=== PATIENT | female | born 1955 | race Hispanic/Latino ===

== ENCOUNTER → 2021-03-26 | Day surgery (SDC) | payer MEDICARE ==
[2021-03-21 09:56] LABS: BASOPHILS # (AUTO) 0.1 (0.0-0.1); BASOPHILS % 0.5 % (0.0-1.0); EOSINOPHILS # (AUTO) 0.2 (0.0-0.4); EOSINOPHILS % 2.6 % (0.0-6.0); HEMATOCRIT 32.7 % (34.2-44.1); LYMPHOCYTES # (AUTO) 1.7 (1.0-3.2); LYMPHOCYTES % 18.3 % (18.0-39.1); MEAN CORPUSCULAR HEMOGLOBIN 26.6 pg (28-32); MEAN CORPUSCULAR HGB CONC 30.6 g/dL (31-35); MONOCYTES # (AUTO) 0.7 (0.2-0.8); MONOCYTES % 7.2 % (4.4-11.3); NEUTROPHILS # (AUTO) 6.6 (2.1-6.9); PLATELET COUNT 267 x10e3/uL (140-360); RED BLOOD COUNT 3.76 x10e6/uL (3.6-5.1); RED CELL DISTRIBUTION WIDTH 13.7 % (11.7-14.4)
[2021-03-21 10:31] LABS: ALBUMIN 3.8 g/dL (3.5-5.0); ALBUMIN/GLOBULIN RATIO 1.2 (0.8-2.0); ANION GAP 15.9 mmol/L (8-16); CREATININE, SERUM 1.94 mg/dL (0.57-1.11); POTASSIUM 4.9 mmol/L (3.5-5.1)
[2021-03-26] VITALS (7 sets, daily range): BP systolic 105–153; BP diastolic 57–67
[~2021-03-26] VITALS: Ht 152.4 cm; Wt 103.0 kg
[~2021-03-26] MED LIST: ALPRAZOLAM 0.5 MG TAB ONE; ATORVASTATIN CA20 MG PO; CARVEDILOL3.125 MG PO; DIPHENHYDRAMINE HCL 25 MG CAP ONE; DIPHENHYDRAMINE HCL INJ 50 MG/ML VIAL ONE; FAMOTIDINE 20 MG/2 ML VIAL IV ONE; FENTANYL CITRATE/PF 100MCG/2 ML INJ ONE; FLECAINIDE ACE100 MG PO; FUROSEMIDE40 MG PO; HEPARIN SOD/SOD CHLORIDE 2,000 ML ONE; HYDRALAZINE HCL25 MG PO; IOPAMIDOL 370 MG/ML 200 ML INFUS..BTL INJ ONE; LIDOCAINE HCL 2% LOCAL 20 ML VIAL ONE; METHYLPREDNISOLONE SOD SUCC 125 MG/2ML VIAL ONE; MIDAZOLAM HCL 2 MG/2 ML VIAL ONE; NOVOLIN 70100 UNIT/3 SC; SODIUM CHLORIDE 0.9% 1000ML 1,000 ML ONE; SPIRONOLACTONE25 MG PO; TRIAMCINOLONE A15 G2 TOP; VITAMIN C500 MG PO; WARFARIN SODIUM3 MG PO
== END | disposition home or self-care (01) ==
LOC: CATH LAB 14:35
PROVIDERS: ATTEND Internal Medicine Interventional Cardiology
DX: I25.118 Atherosclerotic heart disease of native coronary artery with other forms of angina pectoris (principal); R94.39 Abnormal result of other cardiovascular function study; I10 Essential (primary) hypertension; I73.9 Peripheral vascular disease, unspecified; R06.09 Other forms of dyspnea; E11.9 Type 2 diabetes mellitus without complications; Z01.812 Encounter for preprocedural laboratory examination; Z20.822 Contact with and (suspected) exposure to COVID-19; Z79.4 Long term (current) use of insulin; Z79.01 Long term (current) use of anticoagulants; Z79.899 Other long term (current) drug therapy; Z68.41 Body mass index [BMI] 40.0-44.9, adult; Z86.73 Personal history of transient ischemic attack (TIA), and cerebral infarction without residual deficits
CPT/HCPCS: 36415 ×2; 76937; 80053; 82948; 83880; 85025; 93454; C1769; C1887; J1200; J2001; J2250; J2930; J3010; J7030; Q9967; U0002; 99152

== ENCOUNTER 2021-06-05 20:21 | Observation (INO) | payer MEDICARE ==
[~2021-06-05] VITALS: Ht 152.4 cm; Wt 99.8 kg
[~2021-06-05 20:21] MED LIST changes: -ALPRAZOLAM 0.5 MG TAB ONE; -DIPHENHYDRAMINE HCL 25 MG CAP ONE; -DIPHENHYDRAMINE HCL INJ 50 MG/ML VIAL ONE; -FAMOTIDINE 20 MG/2 ML VIAL IV ONE; -FENTANYL CITRATE/PF 100MCG/2 ML INJ ONE; -HEPARIN SOD/SOD CHLORIDE 2,000 ML ONE; -IOPAMIDOL 370 MG/ML 200 ML INFUS..BTL INJ ONE; -LIDOCAINE HCL 2% LOCAL 20 ML VIAL ONE; -METHYLPREDNISOLONE SOD SUCC 125 MG/2ML VIAL ONE; -MIDAZOLAM HCL 2 MG/2 ML VIAL ONE; -SODIUM CHLORIDE 0.9% 1000ML 1,000 ML ONE
[2021-06-05 21:05] LABS: BASOPHILS # (AUTO) 0.1 (0.0-0.1); BASOPHILS % 0.6 % (0.0-1.0); EOSINOPHILS # (AUTO) 0.4 (0.0-0.4); EOSINOPHILS % 3.5 % (0.0-6.0); HEMATOCRIT 30.1 % (34.2-44.1); HEMOGLOBIN 8.9 g/dL (12.0-16.0); LYMPHOCYTES # (AUTO) 1.7 (1.0-3.2); LYMPHOCYTES % 16.9 % (18.0-39.1); MEAN CORPUSCULAR HEMOGLOBIN 26.7 pg (28-32); MEAN CORPUSCULAR HGB CONC 29.6 g/dL (31-35); MEAN CORPUSCULAR VOLUME 90.4 fL (81-99); MONOCYTES # (AUTO) 0.7 (0.2-0.8); MONOCYTES % 6.9 % (4.4-11.3); NEUTROPHILS # (AUTO) 7.2 (2.1-6.9); NEUTROPHILS % 71.8 % (38.7-80.0); PLATELET COUNT 270 x10e3/uL (140-360); RED BLOOD COUNT 3.33 x10e6/uL (3.6-5.1); RED CELL DISTRIBUTION WIDTH 14.6 % (11.7-14.4)
[2021-06-05 21:23] LABS: ALBUMIN 3.6 g/dL (3.5-5.0); ALBUMIN/GLOBULIN RATIO 1.1 (0.8-2.0); ANION GAP 14.5 mmol/L (8-16); CALCIUM 8.8 mg/dL (8.4-10.2); CREATININE, SERUM 1.89 mg/dL (0.57-1.11); POTASSIUM 5.5 mmol/L (3.5-5.1)
[2021-06-05 21:29] LABS: CREATINE KINASE MB 4.3 ng/mL (0-5.0)
[2021-06-05] MEDS ORDERED: DEXTROSE 50% SYRINGE 50 ML IV STA ×2 (21:45→22:14)
[2021-06-05] MEDS ORDERED: INSULIN REGULAR, HUMAN 100 UNIT/1 ML SQ STA (21:45)
[2021-06-05] MEDS ORDERED: FUROSEMIDE INJ 10 MG/ML 4 ML VIAL IV ONE (21:45)
[2021-06-05] MEDS ORDERED: SODIUM BICARBONATE 8.4% INJ 50 ML SYR IV STA (21:45)
[2021-06-05 22:00] VITALS: BP 154/72
[2021-06-05] MEDS ORDERED: INSULIN REGULAR, HUMAN 100 UNIT/1 ML IV ONE (22:30)
[2021-06-05] MEDS ORDERED: DEXTROSE 50% SYRINGE 50 ML IV ONE ×3 (22:35→23:08)
[2021-06-05] MEDS ORDERED: SODIUM CHLORIDE 0.9% 250ML 250 ML ONE (22:52)
[2021-06-06 04:00] VITALS: BP 151/67
[2021-06-06 05:59] LABS: BASOPHILS # (AUTO) 0.1 (0.0-0.1); BASOPHILS % 0.4 % (0.0-1.0); EOSINOPHILS # (AUTO) 0.2 (0.0-0.4); HEMATOCRIT 27.4 % (34.2-44.1); HEMOGLOBIN 8.3 g/dL (12.0-16.0); LYMPHOCYTES # (AUTO) 1.5 (1.0-3.2); LYMPHOCYTES % 13.6 % (18.0-39.1); MEAN CORPUSCULAR HEMOGLOBIN 26.8 pg (28-32); MEAN CORPUSCULAR HGB CONC 30.3 g/dL (31-35); MEAN CORPUSCULAR VOLUME 88.4 fL (81-99); MONOCYTES # (AUTO) 0.7 (0.2-0.8); NEUTROPHILS # (AUTO) 8.8 (2.1-6.9); NEUTROPHILS % 77.6 % (38.7-80.0); PLATELET COUNT 261 x10e3/uL (140-360); RED CELL DISTRIBUTION WIDTH 14.7 % (11.7-14.4)
[2021-06-06 06:27] LABS: ALBUMIN 3.3 g/dL (3.5-5.0); ALBUMIN/GLOBULIN RATIO 1.1 (0.8-2.0); ANION GAP 13.9 mmol/L (8-16); CALCIUM 8.7 mg/dL (8.4-10.2); CREATININE, SERUM 1.88 mg/dL (0.57-1.11); POTASSIUM 4.9 mmol/L (3.5-5.1)
[2021-06-06 07:04] LABS: CREATINE KINASE MB 3.6 ng/mL (0-5.0)
[2021-06-06 07:45] VITALS: BP 130/55
[2021-06-06 09:02] VITALS: BP 130/55
[2021-06-06] MEDS ORDERED: LEVOFLOXACIN 750MG/D5W 150ML 150 ML IV ONE (10:00)
[2021-06-06 11:04] VITALS: BP 127/64
[2021-06-06 15:16] VITALS: BP 128/57
[2021-06-06] MEDS ORDERED: FUROSEMIDE INJ 10 MG/ML 4 ML VIAL IV ONE (17:45)
== END 2021-06-06 19:45 | disposition home or self-care (01) ==
LOC: ER 20:56 → ERHOLD 21:57 → MERGE 21:57 → MED/SURG3 23:09
PROVIDERS: ADMIT Internal Medicine; ATTEND Internal Medicine
DX: J18.9 Pneumonia, unspecified organism (principal); I12.9 Hypertensive chronic kidney disease with stage 1 through stage 4 chronic kidney disease, or unspecified chronic kidney disease; N18.32 Chronic kidney disease, stage 3b; Z20.822 Contact with and (suspected) exposure to COVID-19
CPT/HCPCS: 36415 ×2; 71045; 80053 ×2; 82550 ×2; 82553 ×2; 82948; 83880; 84484 ×2; 85025 ×2; 85379; 93005; 93306; 94799; 99284; G0378 ×2; J0456; J1817; J1940 ×2; J7050; J7799; U0002

== ENCOUNTER 2021-06-20 12:00 | Inpatient (IN) | payer MEDICARE ==
[~2021-06-20] VITALS: Ht 152.4 cm; Wt 102.1 kg
[2021-06-20] MEDS ORDERED: DIGOXIN INJ 0.25 MG/ML 2 ML AMP IV STA (12:12)
[2021-06-20] MEDS ORDERED: DILTIAZEM HCL 5 MG/ML 5 ML VIAL IV STA (12:12)
[2021-06-20 12:26] LABS: BASOPHILS % 0.4 % (0.0-1.0); EOSINOPHILS # (AUTO) 0.2 (0.0-0.4); EOSINOPHILS % 2.6 % (0.0-6.0); HEMATOCRIT 31.1 % (34.2-44.1); HEMOGLOBIN 9.3 g/dL (12.0-16.0); LYMPHOCYTES # (AUTO) 1.4 (1.0-3.2); LYMPHOCYTES % 15.8 % (18.0-39.1); MEAN CORPUSCULAR HEMOGLOBIN 26.4 pg (28-32); MEAN CORPUSCULAR HGB CONC 29.9 g/dL (31-35); MEAN CORPUSCULAR VOLUME 88.4 fL (81-99); MONOCYTES # (AUTO) 0.6 (0.2-0.8); MONOCYTES % 6.9 % (4.4-11.3); NEUTROPHILS # (AUTO) 6.6 (2.1-6.9); PLATELET COUNT 238 x10e3/uL (140-360); RED BLOOD COUNT 3.52 x10e6/uL (3.6-5.1); RED CELL DISTRIBUTION WIDTH 13.8 % (11.7-14.4)
[2021-06-20] MEDS ORDERED: ONDANSETRON HCL INJ 2MG/ML 2ML 2 MG/ML VIAL IV PRN (12:30)
[2021-06-20] MEDS ORDERED: Morphine 4mg Syringe 4 MG/ML INJ IV PRN (12:30)
[2021-06-20] MEDS ORDERED: ASPIRIN 81 MG CHEW TAB PO ONE (12:30)
[2021-06-20 12:49] LABS: ALBUMIN 3.4 g/dL (3.5-5.0); ALBUMIN/GLOBULIN RATIO 1.1 (0.8-2.0); ANION GAP 15.9 mmol/L (8-16); CREATININE, SERUM 2.04 mg/dL (0.57-1.11); POTASSIUM 4.9 mmol/L (3.5-5.1)
[2021-06-20 14:30] VITALS: BP 104/66
[2021-06-20] MEDS ORDERED: COREG6.25 MG PO (18:20)
[2021-06-20] MEDS ORDERED: LIPITOR20 MG PO (18:20)
[2021-06-20] MEDS ORDERED: SPIRONOLACTONE25 MG PO (18:20)
[2021-06-20] MEDS ORDERED: HYDRALAZINE HCL25 MG PO (18:20)
[2021-06-20] MEDS ORDERED: FUROSEMIDE40 MG PO (18:20)
[2021-06-20] MEDS ORDERED: WARFARIN SODIUM5 MG PO (18:20)
[2021-06-20] MEDS ORDERED: FLECAINIDE ACE100 MG PO (18:20)
[2021-06-20] MEDS ORDERED: RAYALDEE30 MCG (18:23)
[2021-06-20 19:18] VITALS: BP 120/65
[2021-06-20 19:55] VITALS: BP 103/88
[2021-06-20 20:44] LABS: CREATINE KINASE MB 1.8 ng/mL (0-5.0)
[2021-06-20 20:53] VITALS: BP 103/88
[2021-06-20] MEDS ORDERED: ATORVASTATIN 20 MG TAB PO SCH (21:00)
[2021-06-20] MEDS ORDERED: ACETAMINOPHEN 325 MG TAB PO PRN (21:00)
[2021-06-21 00:42] VITALS: BP 143/67
[2021-06-21 00:59] LABS: INR 3.47; PROTHROMBIN TIME 36.7 seconds (11.9-14.5)
[2021-06-21 05:06] LABS: BASOPHILS # (AUTO) 0.1 (0.0-0.1); BASOPHILS % 0.7 % (0.0-1.0); EOSINOPHILS # (AUTO) 0.2 (0.0-0.4); HEMATOCRIT 27.6 % (34.2-44.1); HEMOGLOBIN 8.3 g/dL (12.0-16.0); LYMPHOCYTES # (AUTO) 1.9 (1.0-3.2); LYMPHOCYTES % 25.5 % (18.0-39.1); MEAN CORPUSCULAR HEMOGLOBIN 26.5 pg (28-32); MEAN CORPUSCULAR HGB CONC 30.1 g/dL (31-35); MEAN CORPUSCULAR VOLUME 88.2 fL (81-99); MONOCYTES # (AUTO) 0.7 (0.2-0.8); MONOCYTES % 9.4 % (4.4-11.3); NEUTROPHILS # (AUTO) 4.5 (2.1-6.9); NEUTROPHILS % 61.1 % (38.7-80.0); PLATELET COUNT 209 x10e3/uL (140-360); RED BLOOD COUNT 3.13 x10e6/uL (3.6-5.1)
[2021-06-21 05:26] LABS: ALBUMIN 3.1 g/dL (3.5-5.0); ALBUMIN/GLOBULIN RATIO 1.1 (0.8-2.0); ANION GAP 13.3 mmol/L (8-16); CREATININE, SERUM 2.06 mg/dL (0.57-1.11); POTASSIUM 5.3 mmol/L (3.5-5.1)
[2021-06-21 06:01] LABS: CREATINE KINASE MB 2.5 ng/mL (0-5.0)
[2021-06-21 06:22] VITALS: BP 133/66
[2021-06-21] MEDS ORDERED: TOPROL XL50 MG PO (08:02)
[2021-06-21 08:12] VITALS: BP 129/53
[2021-06-21] MEDS ORDERED: FLECAINIDE ACETATE 100 MG TAB PO SCH (09:00)
[2021-06-21] MEDS ORDERED: CARVEDILOL 3.125 MG TAB PO SCH (09:00)
[2021-06-21] MEDS ORDERED: ONDANSETRON HCL 4 MG ORAL DISINTEGRATING TAB PO PRN (09:00)
[2021-06-21] MEDS ORDERED: INSULIN ASPART 70/30 100 UNITS/ML VIAL SC SCH (09:00)
[2021-06-21] MEDS ORDERED: METOPROLOL SUCCINATE 50 MG TAB XL PO SCH (09:00)
== END 2021-06-21 09:31 | disposition home or self-care (01) | DRG 292 ==
LOC: ER 12:04 → ERHOLD 12:19 → MED/SURG2 13:30
PROVIDERS: ADMIT Internal Medicine; ATTEND Internal Medicine
DX: I13.0 Hypertensive heart and chronic kidney disease with heart failure and stage 1 through stage 4 chronic kidney disease, or unspecified chronic kidney disease (principal); N18.4 Chronic kidney disease, stage 4 (severe); I50.22 Chronic systolic (congestive) heart failure; N17.9 Acute kidney failure, unspecified; E78.5 Hyperlipidemia, unspecified; Z20.822 Contact with and (suspected) exposure to COVID-19; E11.22 Type 2 diabetes mellitus with diabetic chronic kidney disease; Z79.899 Other long term (current) drug therapy; Z95.0 Presence of cardiac pacemaker
CPT/HCPCS: 36415; 71045; 80053; 80061; 82550; 82553; 82948; 83036; 83880; 84484; 85025; 85379; 85610; 93005; 94799; 99284; J1160; J1815; J2405; U0002

== ENCOUNTER 2022-09-18 19:23 | Inpatient (IN) | payer MEDICARE ==
[~2022-09-18] VITALS: Ht 152.4 cm; Wt 111.1 kg
[~2022-09-18 19:23] MED LIST changes: +COREG6.25 MG PO; +LIPITOR20 MG PO; +RAYALDEE30 MCG; +TOPROL XL50 MG PO; +WARFARIN SODIUM5 MG PO
[2022-09-18] MEDS ORDERED: METOPROLOL TARTRATE INJ 1 MG/ML VIAL IV STA (20:00)
[2022-09-18] MEDS ORDERED: DILTIAZEM HCL 5 MG/ML 5 ML VIAL IV STA (20:00)
[2022-09-18] MEDS ORDERED: ACETAMINOPHEN 325 MG TAB PO STA (20:00)
[2022-09-18] MEDS ORDERED: DIGOXIN INJ 0.25 MG/ML 2 ML AMP IV STA (20:00)
[2022-09-18] MEDS ORDERED: LEVOFLOXACIN 750MG/D5W 150ML 150 ML IV SCH (20:15)
[2022-09-18 20:27] LABS: BASOPHILS % 0.2 % (0.0-1.0); EOSINOPHILS % 0.1 % (0.0-6.0); HEMATOCRIT 38.7 % (34.2-44.1); HEMOGLOBIN 12.1 g/dL (12.0-16.0); LYMPHOCYTES # (AUTO) 0.2 (1.0-3.2); LYMPHOCYTES % 1.7 % (18.0-39.1); MEAN CORPUSCULAR HEMOGLOBIN 26.1 pg (28-32); MEAN CORPUSCULAR HGB CONC 31.3 g/dL (31-35); MEAN CORPUSCULAR VOLUME 83.4 fL (81-99); MONOCYTES # (AUTO) 0.5 (0.2-0.8); MONOCYTES % 3.8 % (4.4-11.3); NEUTROPHILS # (AUTO) 12.2 (2.1-6.9); NEUTROPHILS % 93.7 % (38.7-80.0); PLATELET COUNT 206 x10e3/uL (140-360); RED BLOOD COUNT 4.64 x10e6/uL (3.6-5.1); RED CELL DISTRIBUTION WIDTH 14.5 % (11.7-14.4)
[2022-09-18 20:44] LABS: ALBUMIN 3.5 g/dL (3.5-5.0); ALBUMIN/GLOBULIN RATIO 1.2 (0.8-2.0); ANION GAP 18.1 mmol/L (8-16); CALCIUM 8.9 mg/dL (8.4-10.2); CREATININE, SERUM 2.19 mg/dL (0.57-1.11); POTASSIUM 4.1 mmol/L (3.5-5.1)
[2022-09-18 22:30] VITALS: PULSE 106; RESP 20; O2SAT 98
[2022-09-19] VITALS (11 sets, daily range): BP systolic 103–136; BP diastolic 46–91; PULSE 59–122; RESP 18–23; TEMP 97.9–99.7; O2SAT 92–100
[2022-09-19] MEDS ORDERED: SODIUM CHLORIDE FLUSH 10 ML SYR INJ PRN
[2022-09-19] MEDS ORDERED: ONDANSETRON HCL INJ 2MG/ML 2ML 2 MG/ML VIAL IV PRN
[2022-09-19] MEDS ORDERED: Morphine 4mg INJECTION 4 MG/ML INJ IV PRN
[2022-09-19] MEDS ORDERED: ACETAMINOPHEN/CODEINE 300MG - 30MG TAB PO STA (01:26)
[2022-09-19] MEDS ORDERED: VALSARTAN160 MG PO (03:48)
[2022-09-19] MEDS ORDERED: CARVEDILOL6.25 MG PO (03:48)
[2022-09-19] MEDS ORDERED: ELIQUIS2.5 MG PO (03:48)
[2022-09-19] MEDS ORDERED: FARXIGA5 MG PO (03:48)
[2022-09-19 07:07] LABS: BASOPHILS # (AUTO) 0.1 (0.0-0.1); BASOPHILS % 0.3 % (0.0-1.0); HEMOGLOBIN 11.5 g/dL (12.0-16.0); LYMPHOCYTES # (AUTO) 0.3 (1.0-3.2); LYMPHOCYTES % 1.7 % (18.0-39.1); MEAN CORPUSCULAR HEMOGLOBIN 26.1 pg (28-32); MEAN CORPUSCULAR HGB CONC 31.1 g/dL (31-35); MEAN CORPUSCULAR VOLUME 83.9 fL (81-99); MONOCYTES # (AUTO) 0.6 (0.2-0.8); NEUTROPHILS % 94.4 % (38.7-80.0); PLATELET COUNT 189 x10e3/uL (140-360); RED BLOOD COUNT 4.41 x10e6/uL (3.6-5.1); RED CELL DISTRIBUTION WIDTH 14.6 % (11.7-14.4)
[2022-09-19 07:30] LABS: ALBUMIN 3.1 g/dL (3.5-5.0); ANION GAP 16.3 mmol/L (8-16); CALCIUM 8.7 mg/dL (8.4-10.2); CREATININE, SERUM 2.32 mg/dL (0.57-1.11); POTASSIUM 4.3 mmol/L (3.5-5.1)
[2022-09-19] MEDS ORDERED: LACTATED RINGER'S 1,000 ML INJ SCH (08:00)
[2022-09-19] MEDS ORDERED: LACTATED RINGER'S 250 ML IV ONE (08:00)
[2022-09-19 08:47] LABS: CHOL/HDL RATIO 2.3 (3.0-3.6)
[2022-09-19] MEDS: SODIUM CHLORIDE 0.9% 1000ML 1,000 ML IV SCH ×2 (09:05→21:48)
[2022-09-19] MEDS: METOPROLOL TARTRATE 25 MG TAB PO SCH ×2 (09:06→21:40)
[2022-09-19] MEDS: FUROSEMIDE INJ 10 MG/ML 4 ML VIAL IV SCH ×2 (09:07→17:23)
[2022-09-19 09:08] LABS: FREE THYROXINE INDEX 2.7965 (1.4-3.8); THYROID STIMULATING HORMONE 0.369 uIU/mL (0.350-4.940)
[2022-09-19] MEDS: APIXABAN 5 MG TABLET PO SCH ×2 (09:12→17:23)
[2022-09-19 15:53] LABS: CREATINE KINASE MB 2.8 ng/mL (0-5.0)
[2022-09-19] MEDS ORDERED: DEXTROSE 50% SYRINGE 50 ML IV PRN (16:00)
[2022-09-19] MEDS: INSULIN LISPRO 100 UNIT/1 ML 3ML VIAL SQ SCH ×2 (16:30→21:00)
[2022-09-19 21:24] LABS: CLARITY,URINE SL CLOUDY (CLEAR); COLOR,URINE YELLOW (YELLOW); KETONES,URINE NEGATIVE (NEGATIVE); LEUKOCYTE ESTERASE ,URINE NEGATIVE (NEGATIVE); NITRITE,URINE NEGATIVE (NEGATIVE); PROTEIN,URINE DIPSTICK NEGATIVE (NEGATIVE); URINE UROBILINOGEN 1 mg/dL (0.2 - 1)
[2022-09-19 21:31] LABS: BACTERIA,URINE MODERATE /HPF; EPITHELIAL CELLS,URINE MANY /LPF; RBC,URINE 0-5 /HPF (0-5)
[2022-09-20] VITALS (7 sets, daily range): BP systolic 100–140; BP diastolic 60–94; PULSE 59–116; RESP 18–25; TEMP 97.6–99.3; O2SAT 95–100
[2022-09-20] MEDS: SODIUM CHLORIDE 0.9% 1000ML 1,000 ML IV SCH (05:02)
[2022-09-20 06:50] LABS: BASOPHILS % 0.3 % (0.0-1.0); EOSINOPHILS % 0.1 % (0.0-6.0); HEMATOCRIT 37.1 % (34.2-44.1); HEMOGLOBIN 11.4 g/dL (12.0-16.0); LYMPHOCYTES # (AUTO) 0.6 (1.0-3.2); LYMPHOCYTES % 5.2 % (18.0-39.1); MEAN CORPUSCULAR HGB CONC 30.7 g/dL (31-35); MEAN CORPUSCULAR VOLUME 84.5 fL (81-99); MONOCYTES # (AUTO) 0.6 (0.2-0.8); MONOCYTES % 5.5 % (4.4-11.3); NEUTROPHILS # (AUTO) 9.4 (2.1-6.9); NEUTROPHILS % 88.5 % (38.7-80.0); PLATELET COUNT 186 x10e3/uL (140-360); RED BLOOD COUNT 4.39 x10e6/uL (3.6-5.1); RED CELL DISTRIBUTION WIDTH 14.7 % (11.7-14.4)
[2022-09-20 07:04] LABS: ALBUMIN 3.1 g/dL (3.5-5.0); ANION GAP 17.2 mmol/L (8-16); CALCIUM 8.7 mg/dL (8.4-10.2); CREATININE, SERUM 2.37 mg/dL (0.57-1.11); MAGNESIUM 1.9 MG/DL (1.3-2.1); POTASSIUM 4.2 mmol/L (3.5-5.1)
[2022-09-20 07:10] LABS: CREATINE KINASE MB 3.6 ng/mL (0-5.0)
[2022-09-20] MEDS: INSULIN LISPRO 100 UNIT/1 ML 3ML VIAL SQ SCH ×5 (07:30→21:04)
[2022-09-20 08:10] LABS: PHOSPHORUS 4.1 MG/DL (2.3-4.7)
[2022-09-20] MEDS: METOPROLOL TARTRATE 25 MG TAB PO SCH ×2 (10:25→20:59)
[2022-09-20] MEDS: FUROSEMIDE INJ 10 MG/ML 4 ML VIAL IV SCH ×2 (10:25→16:51)
[2022-09-20] MEDS: APIXABAN 5 MG TABLET PO SCH (10:25)
[2022-09-20] MEDS: METRONIDAZOLE 500MG/NS 100ML 100 ML IV SCH ×2 (14:45→21:23)
[2022-09-20] MEDS ORDERED: APIXABAN 5 MG TABLET PO SCH (17:00)
[2022-09-20] MEDS ORDERED: LEVOFLOXACIN 750MG/D5W 150ML 150 ML IV SCH (20:00)
[2022-09-20] MEDS: ENOXAPARIN SOD INJ 120 MG/0.8 ML SYR SC SCH (21:11)
[2022-09-21 04:00] VITALS: BP 131/82; PULSE 96; RESP 18; TEMP 98.6; O2SAT 98
[2022-09-21] MEDS: METRONIDAZOLE 500MG/NS 100ML 100 ML IV SCH ×3 (05:26→21:38)
[2022-09-21 06:46] LABS: BASOPHILS % 0.4 % (0.0-1.0); EOSINOPHILS # (AUTO) 0.1 (0.0-0.4); EOSINOPHILS % 0.7 % (0.0-6.0); HEMATOCRIT 37.2 % (34.2-44.1); HEMOGLOBIN 11.6 g/dL (12.0-16.0); LYMPHOCYTES # (AUTO) 0.8 (1.0-3.2); LYMPHOCYTES % 8.9 % (18.0-39.1); MEAN CORPUSCULAR HEMOGLOBIN 26.1 pg (28-32); MEAN CORPUSCULAR HGB CONC 31.2 g/dL (31-35); MEAN CORPUSCULAR VOLUME 83.8 fL (81-99); MONOCYTES # (AUTO) 0.9 (0.2-0.8); MONOCYTES % 9.7 % (4.4-11.3); NEUTROPHILS # (AUTO) 7.2 (2.1-6.9); NEUTROPHILS % 79.7 % (38.7-80.0); PLATELET COUNT 192 x10e3/uL (140-360); RED BLOOD COUNT 4.44 x10e6/uL (3.6-5.1); RED CELL DISTRIBUTION WIDTH 14.8 % (11.7-14.4)
[2022-09-21 07:41] LABS: ALBUMIN 3.1 g/dL (3.5-5.0); ALBUMIN/GLOBULIN RATIO 0.9 (0.8-2.0); ANION GAP 18.1 mmol/L (8-16); CREATININE, SERUM 2.09 mg/dL (0.57-1.11); MAGNESIUM 1.9 MG/DL (1.3-2.1); PHOSPHORUS 3.3 MG/DL (2.3-4.7); POTASSIUM 4.1 mmol/L (3.5-5.1)
[2022-09-21 08:26] VITALS: BP 129/67; PULSE 118; RESP 20; TEMP 98.6; O2SAT 95
[2022-09-21] MEDS: FUROSEMIDE INJ 10 MG/ML 4 ML VIAL IV SCH ×2 (09:15→16:55)
[2022-09-21] MEDS: ENOXAPARIN SOD INJ 120 MG/0.8 ML SYR SC SCH ×2 (09:15→20:34)
[2022-09-21] MEDS: METOPROLOL TARTRATE 25 MG TAB PO SCH ×2 (09:15→20:35)
[2022-09-21] MEDS: INSULIN LISPRO 100 UNIT/1 ML 3ML VIAL SQ SCH ×2 (09:36→17:05)
[2022-09-21] MEDS ORDERED: CALCIUM CARBONATE 500 MG CHEWABLE TABS PO PRN (12:30)
[2022-09-21] MEDS: PANTOPRAZOLE SOD 40 MG TABEC PO SCH (13:13)
[2022-09-21 13:29] VITALS: BP 133/83; PULSE 107; RESP 20; TEMP 98.5; O2SAT 95
[2022-09-21] MEDS: HYDROCORTISONE ACETATE 25 MG/SUPP.RECT SUPP RC PRN (15:59)
[2022-09-21 16:29] VITALS: BP 122/91; PULSE 90; RESP 20; TEMP 98; O2SAT 99
[2022-09-21] MEDS ORDERED: INSULIN LISPRO 100 UNIT/1 ML 3ML VIAL SQ ONE (20:15)
[2022-09-21] MEDS ORDERED: MELATONIN 5 MG TABLET PO SCH (21:00)
[2022-09-21 21:56] VITALS: BP 132/89; PULSE 104; RESP 17; TEMP 98.4; O2SAT 97
[2022-09-21 22:00] VITALS: BP 132/89; PULSE 104; RESP 17; TEMP 98.4; O2SAT 97
[2022-09-22 00:43] VITALS: BP 108/75; PULSE 94; RESP 19; TEMP 98.1; O2SAT 99
[2022-09-22 05:29] VITALS: BP 112/63; PULSE 93; RESP 17; TEMP 98.6; O2SAT 98
[2022-09-22 05:59] LABS: BASOPHILS % 0.5 % (0.0-1.0); EOSINOPHILS # (AUTO) 0.1 (0.0-0.4); EOSINOPHILS % 1.1 % (0.0-6.0); HEMATOCRIT 35.3 % (34.2-44.1); HEMOGLOBIN 11.1 g/dL (12.0-16.0); LYMPHOCYTES # (AUTO) 1.3 (1.0-3.2); LYMPHOCYTES % 20.7 % (18.0-39.1); MEAN CORPUSCULAR HEMOGLOBIN 26.1 pg (28-32); MEAN CORPUSCULAR HGB CONC 31.4 g/dL (31-35); MEAN CORPUSCULAR VOLUME 82.9 fL (81-99); MONOCYTES # (AUTO) 0.8 (0.2-0.8); MONOCYTES % 13.3 % (4.4-11.3); NEUTROPHILS # (AUTO) 3.9 (2.1-6.9); NEUTROPHILS % 64.1 % (38.7-80.0); PLATELET COUNT 186 x10e3/uL (140-360); RED BLOOD COUNT 4.26 x10e6/uL (3.6-5.1); RED CELL DISTRIBUTION WIDTH 14.9 % (11.7-14.4)
[2022-09-22] MEDS: METRONIDAZOLE 500MG/NS 100ML 100 ML IV SCH (06:02)
[2022-09-22 06:23] LABS: ALBUMIN 2.9 g/dL (3.5-5.0); ALBUMIN/GLOBULIN RATIO 0.9 (0.8-2.0); ANION GAP 14.5 mmol/L (8-16); CALCIUM 8.8 mg/dL (8.4-10.2); CREATININE, SERUM 2.12 mg/dL (0.57-1.11); MAGNESIUM 1.8 MG/DL (1.3-2.1); POTASSIUM 3.5 mmol/L (3.5-5.1)
[2022-09-22 08:27] VITALS: BP 109/59; PULSE 99; RESP 20; TEMP 97.9; O2SAT 99
[2022-09-22 08:30] VITALS: BP 109/59; PULSE 99; RESP 20; TEMP 97.9; O2SAT 99
[2022-09-22] MEDS: FUROSEMIDE INJ 10 MG/ML 4 ML VIAL IV SCH (09:26)
[2022-09-22] MEDS: PANTOPRAZOLE SOD 40 MG TABEC PO SCH (09:26)
[2022-09-22] MEDS: METOPROLOL TARTRATE 25 MG TAB PO SCH (09:26)
[2022-09-22] MEDS: INSULIN LISPRO 100 UNIT/1 ML 3ML VIAL SQ SCH ×3 (09:53→17:11)
[2022-09-22 13:24] VITALS: BP 132/75; PULSE 91; RESP 20; TEMP 97.9; O2SAT 98
[2022-09-22] MEDS ORDERED: LOPRESSOR25 MG PO (14:34)
[2022-09-22] MEDS ORDERED: METRONIDAZOLE500 MG PO (14:34)
[2022-09-22] MEDS ORDERED: ELIQUIS5 MG PO (14:34)
[2022-09-22] MEDS ORDERED: METRONIDAZOLE 500 MG TAB PO SCH (15:15)
[2022-09-22] MEDS ORDERED: ONDANSETRON HCL 4 MG ORAL DISINTEGRATING TAB PO PRN (15:15)
[2022-09-22] MEDS: HYDROCORTISONE ACETATE 25 MG/SUPP.RECT SUPP RC PRN (16:03)
[2022-09-22] MEDS ORDERED: APIXABAN 5 MG TABLET PO SCH (17:00)
[2022-09-22] MEDS ORDERED: FUROSEMIDE 40 MG TAB PO SCH (17:00)
[2022-09-22] MEDS ORDERED: LEVOFLOXACIN250 MG PO (17:26)
[2022-09-22] MEDS ORDERED: LEVOFLOXACIN 250 MG TAB PO SCH (20:00)
[2022-09-22] MEDS ORDERED: INSULIN GLARGINE 100 UNITS/ML VIAL SQ SCH (21:00)
== END 2022-09-22 08:01 | disposition home or self-care (01) | DRG 871 ==
LOC: ER 19:30 → ERHOLD 09-19 → MED/SURG3 09-19 03:18
PROVIDERS: ADMIT Family Medicine Adult Medicine; ATTEND Family Medicine Adult Medicine
DX: A41.9 Sepsis, unspecified organism (principal); I50.23 Acute on chronic systolic (congestive) heart failure; Z68.42 Body mass index [BMI] 45.0-49.9, adult; N17.9 Acute kidney failure, unspecified; I48.21 Permanent atrial fibrillation; R65.20 Severe sepsis without septic shock; R74.8 Abnormal levels of other serum enzymes; E78.5 Hyperlipidemia, unspecified; K80.20 Calculus of gallbladder without cholecystitis without obstruction; E66.01 Morbid (severe) obesity due to excess calories; E11.65 Type 2 diabetes mellitus with hyperglycemia; Z79.01 Long term (current) use of anticoagulants; I48.0 Paroxysmal atrial fibrillation; K82.8 Other specified diseases of gallbladder
CPT/HCPCS: 36415; 71045; 74176; 76705; 80053; 80061; 81001; 82550; 82553; 82948; 83036; 83605; 83690; 83735; 83880; 84100; 84436; 84443; 84479; 84484; 85025; 87040; 87071; 87086; 87186; 87205; 93005; 93306; 94799; 96361; 96372; 99284; J0696; J1160; J1650; J1940; J7030

== ENCOUNTER 2024-05-27 18:15 | Emergency (ER) | payer MEDICARE ==
[~2024-05-27] VITALS: Ht 152.4 cm; Wt 121.1 kg
[~2024-05-27 18:15] MED LIST changes: +AMIODARONE HCL200 MG PO; +CARVEDILOL6.25 MG PO; +ELIQUIS2.5 MG PO; +ELIQUIS5 MG PO; +FARXIGA5 MG PO; +LEVOFLOXACIN250 MG PO; +LOPRESSOR25 MG PO; +METOPROLOL SUCC50 MG PO; +METRONIDAZOLE500 MG PO; +RAYALDEE30 MCG PO; +VALSARTAN160 MG PO
[2024-05-27 19:11] VITALS: TEMP 98.1
[2024-05-27 19:52] LABS: CORONAVIRUS COVID-19 AG NEGATIVE (NEGATIVE); INFLUENZA A AG NEGATIVE (NEGATIVE); INFLUENZA B AG NEGATIVE (NEGATIVE)
[2024-05-27] MEDS: SODIUM CHLORIDE 0.9% 1000ML 1,000 ML IV STA (21:19)
[2024-05-27 21:36] LABS: BASOPHILS % 0.3 % (0.0-1.0); EOSINOPHILS # (AUTO) 0.1 (0.0-0.4); EOSINOPHILS % 1.1 % (0.0-6.0); HEMATOCRIT 37.6 % (34.2-44.1); LYMPHOCYTES % 10.6 % (18.0-39.1); MEAN CORPUSCULAR HEMOGLOBIN 28.1 pg (28-32); MEAN CORPUSCULAR HGB CONC 29.3 g/dL (31-35); MEAN CORPUSCULAR VOLUME 96.2 fL (81-99); MONOCYTES # (AUTO) 0.7 (0.2-0.8); NEUTROPHILS # (AUTO) 7.4 (2.1-6.9); NEUTROPHILS % 79.7 % (38.7-80.0); PLATELET COUNT 192 x10e3/uL (140-360); RED BLOOD COUNT 3.91 x10e6/uL (3.6-5.1); RED CELL DISTRIBUTION WIDTH 14.1 % (11.7-14.4); WHITE BLOOD COUNT 9.24 x10e3/uL (4.8-10.8)
[2024-05-27 21:56] LABS: ALBUMIN 3.3 g/dL (3.5-5.0); ANION GAP 17.9 mmol/L (8-16); BILIRUBIN,TOTAL 1.3 mg/dL (0.2-1.2); CREATININE, SERUM 3.23 mg/dL (0.57-1.11); POTASSIUM 3.9 mmol/L (3.5-5.1); TOTAL PROTEIN 6.5 g/dL (6.5-8.1)
[2024-05-27 22:02] LABS: TROPONIN I 0.024 ng/mL (0-0.300)
[2024-05-28] MEDS ORDERED: METRONIDAZOLE500 MG PO (01:47)
[2024-05-28 01:54] VITALS: PULSE 60; RESP 20; O2SAT 100
[2024-05-29 18:47] LABS: STREPTOCOCCUS GRP A ANTIGEN NEGATIVE (NEGATIVE)
== END 2024-05-28 02:00 | disposition home or self-care (01) ==
LOC: ER 18:23
DX: N28.9 Disorder of kidney and ureter, unspecified (principal); R74.8 Abnormal levels of other serum enzymes; E11.65 Type 2 diabetes mellitus with hyperglycemia; I10 Essential (primary) hypertension; I50.9 Heart failure, unspecified; E78.5 Hyperlipidemia, unspecified; R53.81 Other malaise; Z95.810 Presence of automatic (implantable) cardiac defibrillator
CPT/HCPCS: 36415; 71046; 74176; 80053; 82550; 83518; 83690; 83880; 84484; 85025; 87070; 93005; 99284; J7030